=== PATIENT | female | born 2000 | race Hispanic/Latino ===

== ENCOUNTER 2022-11-13 19:30 | Inpatient (IN) | payer OTHER ==
[~2022-11-13 19:30] MED LIST: Bupivacaine 0.25% HCL 30 ML VIAL ONE
[2022-11-13] MEDS ORDERED: Promethazine HCl 25 MG/ML VIAL IM PRN (20:13)
[2022-11-13] MEDS ORDERED: Ondansetron PF 4 MG/2 ML Vial IVP PRN (20:13)
[2022-11-13] MEDS ORDERED: hydrALAZINE 20 MG/ML VIAL SLOW IVP PRN (20:13)
[2022-11-13] MEDS ORDERED: Lidocaine 1% (PF) 30 ML VIAL SC PRN (20:13)
[2022-11-13] MEDS ORDERED: NS w/ Oxytocin 30 units 500 ML IV SCH ×3 (20:15→20:30)
[2022-11-13] MEDS ORDERED: Misoprostol 200 MCG TAB PR PRN (20:18)
[2022-11-13] MEDS ORDERED: Ibuprofen 800 MG TAB PO PRN (20:18)
[2022-11-13] MEDS ORDERED: Acetaminophen 500 MG TAB PO PRN (20:18)
[2022-11-13] MEDS ORDERED: Carboprost 250 MCG/ML AMP IM PRN (20:18)
[2022-11-13] MEDS ORDERED: Methylergonovine 0.2 MG/ML VIAL IM PRN (20:18)
[2022-11-13] MEDS ORDERED: Diphenoxylate HCl/Atropine Tablet PO PRN (20:18)
[2022-11-13] MEDS ORDERED: HYDROcodone/Acetaminophen 5/325 mg Tablet PO PRN (20:18)
[2022-11-13] MEDS ORDERED: Tranexamic Acid 1,000 MG/10 ML VIAL IVP PRN (20:18)
[2022-11-13 21:17] LABS: Hematocrit 25.4 % (34.9-44.5); Hemoglobin 7.6 g/dL (12.0-15.5); Mean Corpuscular HGB CONC 29.9 g/dL (32.0-36.0); Mean Corpuscular Hemoglobin 20.3 pg (27.0-33.0); Mean Corpuscular Volume 67.7 fl (81.6-98.3); Mean Platelet Volume 9.5 fl (7.4-10.4); Platelet Count 332 10x3/uL (150-450); RBC Distribution Width 16.1 % (11.5-14.5); Red Blood Cell (RBC) Count 3.75 10x6/uL (3.90-5.03); White Blood Cell (WBC) Count 7.6 10x3/uL (3.5-10.5)
[2022-11-13] MEDS: Misoprostol 100 MCG TAB VAG SCH (21:18)
[2022-11-13 21:24] VITALS: BMI 33.3
[2022-11-13 21:48] LABS: HBSAg Index 0.17 S/CO (0-0.99); Hep B Surf Ag - L&D Non-Reactive S/CO (NonReactive); Syphilis Antibody Nonreactive (Nonreactive); Syphilis Antibody Index 0.04 S/CO (<1.00 Non-Reactive)
[2022-11-13] MEDS: fentaNYL 50 mcg/mL 1 mL Vial SLOW IVP PRN (22:55)
[2022-11-14] MEDS: fentaNYL 50 mcg/mL 1 mL Vial SLOW IVP PRN ×4 (02:08→09:48)
[2022-11-14 05:37] LABS: Glucose 93 mg/dL (70-105)
[2022-11-14] MEDS ORDERED: fentaNYL/Ropivacaine Epidural 100 ML ONE (10:44)
[2022-11-14] MEDS: Lactated Ringer's 1,000 ML IV SCH ×2 (10:54→23:43)
[2022-11-14] MEDS ORDERED: Acetaminophen 325 MG TAB PO PRN (11:06)
[2022-11-14] MEDS ORDERED: Ondansetron PF 4 MG/2 ML Vial IVP PRN (11:06)
[2022-11-14] MEDS ORDERED: Promethazine HCl 25 MG/ML VIAL IM PRN (11:06)
[2022-11-14] MEDS ORDERED: Lactated Ringer's 500 ML IV PRN (11:06)
[2022-11-14] MEDS ORDERED: diphenhydrAMINE 50 MG/ML VIAL IVP PRN (11:06)
[2022-11-14] MEDS ORDERED: Moisturizing Cream (Eucerin) 113 GM JAR TOP PRN (11:06)
[2022-11-14] MEDS ORDERED: Naloxone HCl 0.4 mg/ml Vial IVP PRN ×2 (11:06)
[2022-11-14] MEDS ORDERED: fentaNYL 2 mcg/Ropivacaine 0.2% Epidural 100 ML CADD EPIDURAL SCH (11:15)
[2022-11-14] MEDS ORDERED: Communication Order-Pharmacy FS SCH (11:15)
[2022-11-14] MEDS: ePHEDrine Sulfate 50 MG/10 ML VIAL SLOW IVP PRN ×2 (12:10→19:29)
[2022-11-14] MEDS ORDERED: Azithromycin 500 MG VIAL ONE (23:39)
[2022-11-14] MEDS ORDERED: CEFAZOLIN 2 GM VIAL ONE (23:39)
[2022-11-14] MEDS ORDERED: Famotidine/PF 20 mg/2ml Vial ONE (23:42)
[2022-11-15] MEDS ORDERED: Dexamethasone 4 mg/ml Vial ONE (00:07)
[2022-11-15] MEDS ORDERED: Ondansetron PF 4 MG/2 ML Vial ONE (00:07)
[2022-11-15] MEDS ORDERED: Phenylephrine 40 MG/NS 250 ML 250 ML ONE ×2 (00:07)
[2022-11-15] MEDS ORDERED: Oxytocin 10 UNITS/ML VIAL ONE (00:08)
[2022-11-15] MEDS ORDERED: PROPOFOL 20 ML ONE (00:15)
[2022-11-15] MEDS ORDERED: Succinylcholine 200 MG/10 ml SYRINGE FS ONE (00:17)
[2022-11-15] MEDS ORDERED: Azithromycin 500 MG VIAL ONE (00:30)
[2022-11-15] MEDS ORDERED: fentaNYL 50 mcg/mL 1 mL Vial ONE (00:33)
[2022-11-15] MEDS ORDERED: Lactated Ringer's 500 ML IV PRN (01:18)
[2022-11-15] MEDS ORDERED: Fentanyl 50 MCG/1 ML VIAL SLOW IVP PRN (01:18)
[2022-11-15] MEDS ORDERED: L&D-HYDROmorphone 0.5 MG/0.5 ML SYRINGE SLOW IVP PRN (01:18)
[2022-11-15] MEDS ORDERED: Meperidine HCl/PF 25 MG/ML VIAL SLOW IVP PRN (01:18)
[2022-11-15] MEDS ORDERED: Acetaminophen 325 MG TAB PO PRN (01:18)
[2022-11-15] MEDS ORDERED: diphenhydrAMINE 50 MG/ML VIAL IVP PRN ×2 (01:18)
[2022-11-15] MEDS ORDERED: Naloxone HCl 0.4 mg/ml Vial IVP PRN ×4 (01:18)
[2022-11-15] MEDS ORDERED: Moisturizing Cream (Eucerin) 113 GM JAR TOP PRN ×2 (01:18)
[2022-11-15] MEDS ORDERED: Naloxone HCl 0.4 mg/ml Vial IV PRN (01:18)
[2022-11-15] MEDS ORDERED: Ondansetron HCl/PF 4 MG/2 ML Vial IVP PRN (01:18)
[2022-11-15] MEDS ORDERED: Promethazine HCl 25 MG SUPP PR PRN (01:18)
[2022-11-15] MEDS ORDERED: Ketorolac Tromethamine 30 MG/ML VIAL IVP PRN (01:18)
[2022-11-15] MEDS ORDERED: Ondansetron PF 4 MG/2 ML Vial IVP PRN ×3 (01:18→03:30)
[2022-11-15] MEDS ORDERED: ePHEDrine Sulfate 50 MG/10 ML VIAL SLOW IVP PRN (01:18)
[2022-11-15] MEDS ORDERED: Promethazine HCl 25 MG/ML VIAL IM PRN ×3 (01:18→03:30)
[2022-11-15] MEDS ORDERED: Diphenoxylate HCl/Atropine Tablet PO SCH (01:30)
[2022-11-15] MEDS ORDERED: Communication Order-Pharmacy FS SCH ×2 (01:30)
[2022-11-15] MEDS ORDERED: fentaNYL 2 mcg/Ropivacaine 0.2% Epidural 100 ML CADD EPIDURAL SCH (01:30)
[2022-11-15] MEDS ORDERED: Ketorolac Tromethamine 30 MG/ML VIAL IVP SCH (01:30)
[2022-11-15] MEDS ORDERED: diphenhydrAMINE 25 MG CAP PO PRN (03:30)
[2022-11-15] MEDS ORDERED: Boostrix 0.5 ML (Tdap) VIAL (>/=7 yrs of age) IM ONE (03:30)
[2022-11-15] MEDS ORDERED: Bisacodyl 10 MG SUPP PR PRN (03:30)
[2022-11-15] MEDS ORDERED: Lanolin Ointment 7 GM TUBE TOP PRN (03:30)
[2022-11-15] MEDS ORDERED: hydrALAZINE 20 MG/ML VIAL SLOW IVP PRN (03:30)
[2022-11-15 07:46] LABS: Hematocrit 33.6 % (34.9-44.5); Hemoglobin 10.5 g/dL (12.0-15.5); Mean Corpuscular HGB CONC 31.3 g/dL (32.0-36.0); Mean Corpuscular Hemoglobin 22.3 pg (27.0-33.0); Mean Corpuscular Volume 71.5 fl (81.6-98.3); Mean Platelet Volume 9.3 fl (7.4-10.4); Platelet Count 241 10x3/uL (150-450); RBC Distribution Width 19.5 % (11.5-14.5); White Blood Cell (WBC) Count 19.2 10x3/uL (3.5-10.5)
[2022-11-15] MEDS: Simethicone Chewable 80 MG TAB PO PRN (14:11)
[2022-11-15] MEDS: HYDROcodone/Acetaminophen 5/325 mg Tablet PO PRN ×2 (18:16→22:31)
[2022-11-15] MEDS: Ketorolac Tromethamine 30 MG/ML VIAL IVP SCH ×3 (21:36→22:32)
[2022-11-15] MEDS: Docusate 100 MG CAP PO SCH ×2 (22:24→22:32)
[2022-11-15] MEDS: Prenatal Vitamin 1 TAB PO SCH (22:24)
[2022-11-15] MEDS: Ferrous Sulfate 325 MG TAB PO SCH (22:24)
[2022-11-16] MEDS ORDERED: Ketorolac Tromethamine 30 MG/ML VIAL IVP SCH (03:45)
[2022-11-16] MEDS: Ketorolac Tromethamine 30 MG/ML VIAL IVP SCH (03:52)
[2022-11-16 05:58] LABS: Hematocrit 28.5 % (34.9-44.5); Hemoglobin 8.9 g/dL (12.0-15.5); White Blood Cell (WBC) Count 14.6 10x3/uL (3.5-10.5)
[2022-11-16 05:59] LABS: Mean Corpuscular HGB CONC 31.2 g/dL (32.0-36.0); Mean Corpuscular Hemoglobin 22.3 pg (27.0-33.0); Mean Corpuscular Volume 71.3 fl (81.6-98.3); Mean Platelet Volume 9.7 fl (7.4-10.4); Platelet Count 230 10x3/uL (130-400); RBC Distribution Width 19.3 % (11.5-14.5)
[2022-11-16] MEDS: Ferrous Sulfate 325 MG TAB PO SCH ×3 (07:18→22:31)
[2022-11-16] MEDS: Misoprostol 100 MCG TAB VAG SCH ×2 (07:25→08:59)
[2022-11-16] MEDS: Ibuprofen 800 MG TAB PO SCH ×3 (08:54→22:30)
[2022-11-16] MEDS: Docusate 100 MG CAP PO SCH ×2 (08:54→22:30)
[2022-11-16] MEDS: Prenatal Vitamin 1 TAB PO SCH (08:54)
[2022-11-16] MEDS: Simethicone Chewable 80 MG TAB PO PRN ×2 (08:54→15:55)
[2022-11-16] MEDS: HYDROcodone/Acetaminophen 5/325 mg Tablet PO PRN ×4 (08:54→20:00)
[2022-11-17] MEDS: HYDROcodone/Acetaminophen 5/325 mg Tablet PO PRN ×4 (02:36→19:19)
[2022-11-17] MEDS: Ibuprofen 800 MG TAB PO SCH ×2 (05:20→14:01)
[2022-11-17] MEDS: Simethicone Chewable 80 MG TAB PO PRN ×2 (05:23→08:50)
[2022-11-17 07:50] VITALS: BP 100/55; TEMP 98.1
[2022-11-17] MEDS: Prenatal Vitamin 1 TAB PO SCH (08:49)
[2022-11-17] MEDS: Ferrous Sulfate 325 MG TAB PO SCH (08:50)
[2022-11-17] MEDS: Docusate 100 MG CAP PO SCH (08:50)
== END 2022-11-17 19:31 | disposition home or self-care (01) | DRG 787 ==
LOC: UNDOADMIN 20:09 → CSHLD 20:09 → UNDOADMIN 11-15 03:06 → CSHLD 11-15 03:06 → CSHPP 11-15 18:06
PROVIDERS: ADMIT Family Medicine; ATTEND Family Medicine
PROC: 10907ZC Drainage of Amniotic Fluid, Therapeutic from Products of Conception, Via Natural or Artificial Opening (ICD-10-PCS; 2022-11-14)
PROC: 3E0P7VZ Introduction of Hormone into Female Reproductive, Via Natural or Artificial Opening (ICD-10-PCS; 2022-11-14)
PROC: 10D00Z1 Extraction of Products of Conception, Low, Open Approach (ICD-10-PCS; principal; 2022-11-15)
PROC: 0W3R0ZZ Control Bleeding in Genitourinary Tract, Open Approach (ICD-10-PCS; 2022-11-15)
PROC: 30233N1 Transfusion of Nonautologous Red Blood Cells into Peripheral Vein, Percutaneous Approach (ICD-10-PCS; 2022-11-15)
DX: O48.0 Post-term pregnancy (principal); O72.1 Other immediate postpartum hemorrhage; Z3A.40 40 weeks gestation of pregnancy; Z37.0 Single live birth; O24.420 Gestational diabetes mellitus in childbirth, diet controlled; Z79.899 Other long term (current) drug therapy; O62.1 Secondary uterine inertia; O32.4XX0 Maternal care for high head at term, not applicable or unspecified; D50.9 Iron deficiency anemia, unspecified; O99.02 Anemia complicating childbirth
CPT/HCPCS: 36415; 36416; 36430; 51702; 82947; 85027; 86780; 86850; 86900; 86901; 87340; J1100; J1885; J2210; J2405; J2550; J2590; J2704; J3010; J3490; J7120; P9016; S0020; S0028

== ENCOUNTER 2024-11-19 09:36 | Emergency (ER) | payer OTHER, SELFPAY ==
[2024-11-19 10:35] LABS: Glucose, Urine (Dipstick) Normal (Negative); Leukocyte 500 (Negative); Protein, Urine (Dipstick) 30 mg/dl (Neg-Trace); Specific Gravity, Urine 1.020 (1.005-1.030)
[2024-11-19 10:44] LABS: Pregnancy Test - Urine (BHCG) Negative (Negative); Pregu Control Background? CLEAR/WHITE (CLR/WHITE); Pregu Control Bar Appear? YES (CONTROL BAR)
[2024-11-19 11:28] LABS: CAUTI Indications for Culture Acute Hematuria; WBC/HPF Greater Than 50 HPF (0-3)
[2024-11-19 11:29] LABS: Bacteria/HPF 2+ HPF (None Seen)
[2024-11-19 11:30] LABS: Urine Culture Reflex Yes Yes
== END 2024-11-19 11:03 | disposition home or self-care (01) ==
LOC: CSHERS 09:36
DX: N39.0 Urinary tract infection, site not specified (principal); F17.290 Nicotine dependence, other tobacco product, uncomplicated
CPT/HCPCS: 81001; 81025; 87086; 99283

== ENCOUNTER 2025-02-19 05:52 | Emergency (ER) | payer BC, OTHER ==
[2025-02-19 06:13] LABS: Glucose, Urine (Dipstick) Normal (Negative); Leukocyte 500 (Negative); Protein, Urine (Dipstick) 15 mg/dl (Neg-Trace); Specific Gravity, Urine 1.020 (1.005-1.030)
[2025-02-19 06:17] LABS: Pregnancy Test - Urine (BHCG) Negative (Negative); Pregu Control Background? CLEAR/WHITE (CLR/WHITE); Pregu Control Bar Appear? YES (CONTROL BAR)
[2025-02-19 06:20] LABS: Bacteria/HPF 1+ HPF (None Seen); CAUTI Indications for Culture Dysuria,urgency,freq; RBC/HPF 0-3 HPF (0-3); Trichomonas/HPF 1+ HPF (None Seen)
[2025-02-19 06:25] LABS: Urine Culture Reflex Yes Yes
== END 2025-02-19 06:50 | disposition home or self-care (01) ==
LOC: CSHERS 05:52
DX: N39.0 Urinary tract infection, site not specified (principal); A59.9 Trichomoniasis, unspecified
CPT/HCPCS: 81001; 81025; 87086; 99284